=== PATIENT | male | born 1965 | race Caucasian/White ===

== ENCOUNTER 2021-02-13 09:13 | Emergency (ER) | payer BC ==
[~2021-02-13] VITALS: Ht 180.3 cm; Wt 104.3 kg
[2021-02-13] MEDS ORDERED: ONDA4TAB11 PO (10:16)
--- NOTE | 2021-02-13 10:16 | ED Cough/URI ---
General Chief Complaint: COVID19 Suspect/Confirmed Stated Complaint: UPPER RESP INFECTION, + W/HOME TEST Nursing Triage Note: PT AMB TO RM 10 WITH COMPLAINT OF POSITIVE HOME COVID TEST. STATES WAS EXPOSED LAST WEEK. COMPLAINING OF COUGH AND SORE THROAT. Source: patient Exam Limitations: no limitations History of Present Illness Date Seen by Provider: Feb 13, 2021 Time Seen by Provider: 09:30 Initial Comments Patient is a 55-year-old male who presents to the emergency department today with a chief complaint of concern for Covid infection. He states he took an at- home test this morning and it was positive. He had symptom onset on February 10. He started having nasal congestion, body aches, fatigue developed a cough that is dry. Now more short of breath with exertion. A little bit of nausea and diarrhea. No rashes joint pain or swelling. Moderate headache. No earache but a mild sore throat. Taking whml-ztx-qmfhbxd medications to help alleviate his symptoms. No significant past medical history, no hypertension, tobacco abuse. All other review of systems reviewed and negative except as stated. Timing/Duration: other (3 days) Severity/Quality: moderate Prior Episodes/Possible Cause: illness exposure Associated Symptoms: cough, fever/chills, headache, muscle aches, nasal congestion, shortness of breath, sore throat Allergies and Home Medications Allergies Coded Allergies: No Known Drug Allergies (Unverified , 02/13/21) Patient Home Medication List Home Medication List Reviewed: Yes Ondansetron (Ondansetron Odt) 4 Mg Tab.rapdis, 4 MG PO Q8H PRN for nausea Prescribed by: SANDRA CHRIS on 02/13/21 1016 Review of Systems Review of Systems Constitutional: see HPI, malaise, weakness EENTM: throat pain Respiratory: cough, dyspnea on exertion Cardiovascular: no symptoms reported Gastrointestinal: diarrhea, nausea Genitourinary: no symptoms reported Musculoskeletal: muscle cramps Skin: no symptoms reported Psychiatric/Neurological: Headache Hematologic/Lymphatic: No Symptoms Reported All Other Systems Reviewed Negative Unless Noted: Yes Past Esyhqey-Kwjxqp-Kwppcq Hx Patient Social History Tobacco Use?: No Use of E-Cig and/or Vaping dev: No Substance use?: No Alcohol Use?: No Pt feels they are or have been: No Immunizations Up To Date First/Initial COVID19 Vaccinat: MARCH 2020 Second COVID19 Vaccination Marko: APRIL 2020 COVID19 Vaccine Computing Consultant: JEDA Physical Exam Vital Signs - First Documented 02/13/21 09:23 Temp 36.0 Pulse 79 Resp 16 B/P (MAP) 113/79 (90) Pulse Ox 98 O2 Delivery Room Air Capillary Refill : Less Than 3 Seconds Height: '" Weight: lbs. oz. kg; 32.00 BMI Method: General Appearance: WD/WN, no apparent distress Eyes: Bilateral Eye Normal Inspection, Bilateral Eye PERRL, Bilateral Eye EOMI HEENT: PERRL/EOMI, pharyngeal erythema Neck: non-tender, full range of motion, supple, normal inspection Respiratory: lungs clear (room air 98%), normal breath sounds, no respiratory distress, no accessory muscle use Cardiovascular: regular rate, rhythm Gastrointestinal: non tender, soft Extremities: non-tender, normal inspection, no pedal edema, no calf tenderness Neurologic/Psychiatric: alert, normal mood/affect, oriented x 3 Skin: normal color, warm/dry Progress/Results/Core Measures Suspected Sepsis SIRS Temperature: Pulse: 79 Respiratory Rate: 16 Blood Pressure 113 /79 Mean: 90 Results/Orders Lab Results Laboratory Tests Test 02/13/21 09:27 Range/Units Influenza Type A Antigen NEGATIVE NEGATIVE Influenza Type B Antigen NEGATIVE NEGATIVE SARS-CoV-2 RNA (RT-PCR) Positive H Negative My Orders Orders - SANDRA CHRIS MD Influenza A & B Antigens (02/13/21 09:43) Covid 19 Inhouse Test (02/13/21 09:43) Isolation Central Supply Req (02/13/21 09:43) Vital Signs/I&O 02/13/21 02/13/21 09:23 10:25 Temp 36.0 36.0 Pulse 79 79 Resp 16 16 B/P (MAP) 113/79 (90) 113/79 Pulse Ox 98 98 O2 Delivery Room Air Room Air Capillary Refill : Less Than 3 Seconds Blood Pressure Mean: 90 Departure Impression Primary Impression: Upper respiratory infection Qualified Codes: J06.9 - Acute upper respiratory infection, unspecified Additional Impression: Person under investigation for COVID-19 Disposition: 01 HOME, SELF-CARE Condition: Stable Departure-Patient Inst. Decision time for Depature: 10:13 Referrals: ELIO METCALF MD (PCP/Family) Primary Care Physician Patient Instructions: COVID-19 (DC) Add. Discharge Instructions: Drink plenty of fluids to stay well-hydrated. Stay active and take deep breaths. Continue fxhj-ylx-ktklnyz vitamins such as vitamin D, vitamin C, zinc. You should also take a baby aspirin daily. Stlc-jhg-lpyqdtl ibuprofen, 3 tablets which is 600 mg every 6 hours with food for body aches and fever. You can alternate this with extra strength Tylenol. You should check your oxygen levels with a pulse ox/oxygen monitor that you can obtain at [facility]. If you notice decreasing numbers or numbers that fall below 90% you need to come back to the emergency room for reevaluation. You have had a Covid test that is not a PCR test today. We will call you with those results and if they are negative we will automatically do a retest on that specimen. In the meantime please self isolate/quarantine until you have the results of a PCR test. Follow-up with your primary care doctor in a couple of weeks. I have also sent a prescription for nausea medications to your [facility]. Scripts Ondansetron (Ondansetron Odt) 4 Mg Tab.rapdis 4 MG PO Q8H PRN for nausea, #20 TAB Prov: SANDRA CHRIS MD 02/13/21 Copy Copies To 1: ELIO METACLF MD, KATHRYN M MD Feb 13, 2021 10:16
[2021-02-13 10:25] VITALS: BP 113/79
== END 2021-02-13 10:25 | disposition home or self-care (01) ==
LOC: ER 09:16
DX: U07.1 COVID-19 (principal)
CPT/HCPCS: 87636; 87804; 99283